=== PATIENT | male | born 1990 | race Caucasian/White ===

== ENCOUNTER 2016-08-09 10:33 | Emergency (ER) | payer OTHER ==
--- NOTE | 2016-08-09 11:00 | ER Document Report ---
ED Medical Screen (RME) - General Stated Complaint: CHEST PAIN Notes: onset: has had chest pain for a year couple of times a week left chest radiates to left side of his chest no injury worse with movement and breathing I have greeted and performed a rapid initial assessment of this patient. A comprehensive ED assessment and evaluation of the patient, analysis of test results and completion of the medical decision making process will be conducted by additional ED providers. TRAVEL OUTSIDE OF THE [place] IN LAST 30 DAYS: No - Related Data Allergies/Adverse Reactions: cefaclor [From Ceclor] Allergy (Verified 08/09/16 10:57) Physical Exam - Vital signs Vitals: Temp Pulse Resp BP Pulse Ox 98.2 F 74 18 120/71 96 08/09/16 10:55 08/09/16 10:55 08/09/16 10:55 08/09/16 10:55 08/09/16 10:55 Course - Vital Signs Vital signs: Temp Pulse Resp BP Pulse Ox 98.2 F 74 18 120/71 96 08/09/16 10:55 08/09/16 10:55 08/09/16 10:55 08/09/16 10:55 08/09/16 10:55
--- NOTE | 2016-08-09 11:36 | ER Document Report ---
ED Cardiac - General Chief Complaint: Chest Pain Stated Complaint: CHEST PAIN Mode of Arrival: Ambulatory Information source: Patient TRAVEL OUTSIDE OF THE [place] IN LAST 30 DAYS: No - HPI Patient complains to provider of: Chest pain - This 25-year-old male who states he's had intermittent chest pain for a year. He states that he does not have any specific pattern to it does not necessarily happen when he is being active or exerting himself and again has been completely intermittent. He has no discomfort at this point in time he last had this discomfort on Tuesday lasted 10 minutes was not associated with diaphoresis or shortness of breath. Use of: denies: Alcohol, Amphetamines - Related Data Allergies/Adverse Reactions: cefaclor [From [email or web address]] Allergy (Verified 08/09/16 10:57) Past Medical History - General Information source: Patient - Social History Smoking Status: Never Smoker Chew tobacco use (# tins/day): No Frequency of alcohol use: None Drug Abuse: None Lives with: Family Family History: None Patient has suicidal ideation: No Patient has homicidal ideation: No Endocrine Medical History: Reports: Other - Elevated cholesterol states he is taking medicine for that however does not know the name of it. Renal/ Medical History: Denies: Hx Peritoneal Dialysis Past Surgical History: Reports: None Review of Systems - Review of Systems Constitutional: No symptoms reported EENT: No symptoms reported Cardiovascular: No symptoms reported Respiratory: No symptoms reported Gastrointestinal: No symptoms reported Genitourinary: No symptoms reported Male Genitourinary: No symptoms reported Musculoskeletal: No symptoms reported Skin: No symptoms reported Hematologic/Lymphatic: No symptoms reported Neurological/Psychological: No symptoms reported Physical Exam - Vital signs Vitals: Temp Pulse Resp BP Pulse Ox 98.2 F 74 18 120/71 96 08/09/16 10:55 08/09/16 10:55 08/09/16 10:55 08/09/16 10:55 08/09/16 10:55 Interpretation: Normal - General General appearance: Appears well, Alert - HEENT Head: Normocephalic, Atraumatic Eyes: Normal Pupils: PERRL - Respiratory Respiratory status: No respiratory distress Chest status: Nontender Breath sounds: Normal Chest palpation: Normal - Cardiovascular Rhythm: Regular Heart sounds: Normal auscultation Murmur: No - Abdominal Inspection: Normal Distension: No distension Bowel sounds: Normal Tenderness: Nontender Organomegaly: No organomegaly - Back Back: Normal, Nontender - Extremities General upper extremity: Normal inspection, Nontender, Normal color, Normal ROM , Normal temperature General lower extremity: Normal inspection, Nontender, Normal color, Normal ROM , Normal temperature, Normal weight bearing. No: Anny's sign - Neurological Neuro grossly intact: Yes Cognition: Normal Orientation: AAOx4 Crowell Coma Scale Eye Opening: Spontaneous Crowell Coma Scale Verbal: Oriented Gunnar Coma Scale Motor: Obeys Commands Gunnar Coma Scale Total: 15 Speech: Normal Motor strength normal: LUE, RUE, LLE, RLE Sensory: Normal - Psychological Associated symptoms: Normal affect, Normal mood - Skin Skin Temperature: Warm Skin Moisture: Dry Skin Color: Normal Course - Vital Signs Vital signs: Temp Pulse Resp BP Pulse Ox 98.2 F 74 18 120/71 96 08/09/16 10:55 08/09/16 10:55 08/09/16 10:55 08/09/16 10:55 08/09/16 10:55 - Diagnostic Test Radiology reviewed: Reports reviewed - EKG Interpretation by Me EKG shows normal: Sinus rhythm Rate: Normal Rhythm: NSR - Transfer of Care Notes: 08/09/16 13:15 Given this a 25-year-old male who is had chest pain intermittently for over a year he states there is no sequela which usually brings it happens at rest had been sometimes when he is active he does not smoke he does not drink she does not do any drugs he does state that he has high cholesterol. Saturation is 96% respirations are 16 cardiac markers negative EKG normal sinus rhythm x-ray interpreted by radiology without acute disease process. Reproducible on AP compression 08/09/16 13:18 Discharge - Discharge Clinical Impression: Costochondritis, acute Disposition: HOME, SELF-CARE Instructions: Chest Wall Pain ([facility]) Additional Instructions: Chest Wall Pain Your chest pain has been diagnosed as coming from the chest wall. This is often caused by straining the muscles or joints in the chest during physical activity, direct trauma, coughing, or vigorous vomiting. Persons with arthritis are especially prone to this type of pain, due to inflammation of the cartilage joints near the breast bone. Occasionally, no cause can be found. Rest from strenuous physical activity. This kind of chest pain is usually made worse by movement of the chest. Depending on the symptoms, we may prescribe medicine for pain, muscle relaxation, and antiinflammatory effects. If the pain is new, and seems to be due to muscle strain, cold packs can help. Otherwise, apply gentle warmth to the painful area for 15 minutes every hour or two. You should contact the doctor immediately if things change. Further evaluation is needed if you develop a fever or cough, if the nature of the pain changes, or if you become short of breath. Follow-up with private doctor in 1 to 2 days for final radiology readings please return to the emergency room for any change worsening condition. Follow up with private M.D. for all other routine health care needs. Prescriptions: Naproxen Sodium [Naproxen Sodium ER] 500 mg PO Q12 PRN #20 tablet.sa PRN Reason:
[2016-08-09] MEDS ORDERED: METHYLPREDNISOLONE ACETATE INJ 40 MG/1 ML ML IM ONE (13:20)
[2016-08-09] MEDS ORDERED: DEXAMETHASONE SOD PHOS INJ 10 MG/1 ML VIAL IM ONE (13:20)
[2016-08-09 13:48] VITALS: BP 105/69
--- NOTE | 2016-08-10 00:04 | EKG REPORT ---
SEVERITY:- BORDERLINE ECG - SINUS RHYTHM INFERIOR Q WAVES, PROBABLY NORMAL VARIATION : Confirmed by: Jv Saleh 10-Aug-2016 00:04:07
== END 2016-08-09 13:48 | disposition home or self-care (01) ==
LOC: ER 10:33
DX: M94.0 Chondrocostal junction syndrome [Tietze] (principal); R07.9 Chest pain, unspecified; Z88.3 Allergy status to other anti-infective agents
CPT/HCPCS: 93005; 99285; 96372; 36415; 84484; 71020; 93010; J1020; J1100